=== PATIENT | male | born 1935 | race Caucasian/White ===

== ENCOUNTER 2018-06-19 11:27 | Outpatient (CLI) | payer MEDICARE, MEDICAID ==
[2018-06-19] MEDS ORDERED: MULT-717 PO (13:23)
[2018-06-25] MEDS ORDERED: CEFAZOLIN 1,000 MG ONE (14:32)
[2018-06-25] MEDS ORDERED: FENTANYL PF 250 MCG/5ML ONE (14:32)
== END 2018-06-19 23:59 | disposition home or self-care (01) ==
LOC: STAR 11:27
PROVIDERS: ATTEND Surgery
DX: D49.2 Neoplasm of unspecified behavior of bone, soft tissue, and skin (principal)
CPT/HCPCS: 93005